=== PATIENT | male | born 1985 | race Caucasian/White ===

== ENCOUNTER 2016-12-21 22:53 | Emergency (ER) | payer MEDICARE ==
[~2016-12-21] VITALS: Ht 172.7 cm; Wt 136.1 kg
[2016-12-22 00:20] LABS: BASO # 0.1 x10^3/uL (0.0-0.2); BASO % 1 % (0-3); EOS % 1 % (0-3); HEMATOCRIT 41.5 % (39.0-53.0); HEMOGLOBIN 13.6 g/dL (13.0-17.5); LYMPH # 3.4 x10^3/uL (1.0-4.8); LYMPH % 34 % (24-48); MEAN CORPUSCULAR HEMOGLOBIN 28 pg (25-35); MEAN CORPUSCULAR HGB CONC 33 g/dL (31-37); MEAN CORPUSCULAR VOLUME 86 fL (79-100); MONO % 5 % (0-9); NEUT % 59 % (31-73); PLATELET COUNT 281 x10^3/uL (140-400); RED BLOOD COUNT 4.82 x10^6/uL (4.30-5.70); RED CELL DISTRIBUTION WIDTH 13.7 % (11.5-14.5)
[2016-12-22 00:36] LABS: CALCIUM 8.8 mg/dL (8.5-10.1); GFR 87.7; POTASSIUM 3.6 mmol/L (3.5-5.1)
[2016-12-22 00:49] LABS: ALBUMIN 3.9 g/dL (3.4-5.0); ALBUMIN/GLOBULIN RATIO 1.2 (1.0-1.7); TOTAL BILIRUBIN 0.4 mg/dL (0.2-1.0); TOTAL PROTEIN 7.2 g/dL (6.4-8.2)
--- NOTE | 2016-12-22 01:49 | RAD ---
Examination: CT head without contrast HISTORY: History of seizures COMPARISON: None available TECHNIQUE: Axial CT images of the head was performed without contrast. Coronal reformats were performed FINDINGS: There is mild 5 mm [id number] midline shift with the asymmetry of the cerebral hemispheres with the left cerebral hemisphere appearing smaller compared to the right. There is a large hypodensity, measuring 8.2 x 4.1 cm identified in the left cerebral hemisphere involving the left frontoparietal temporal region which appears continuous with the left lateral ventricle and with septation within. The right lateral ventricles appear somewhat small. The visualized paranasal sinuses, mastoid air cells are clear. 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 A follow-up MRI can be considered. 2. Minimal 5 mm [id number] midline shift. Electronically signed by: Ed Galindo MD (12/22/2016 1:45 AM) [facility]
[2016-12-22] MEDS ORDERED: PHEN100C PO (02:14)
--- NOTE | 2016-12-22 02:14 | PHYS DOC ---
Past Medical History Past Medical History: Other Additional Past Medical Histor: cerebral palsy, ADHD, tourette syndrome Past Surgical History: Other Additional Past Surgical Histo: R wrist, R hamstring extension, R ankle Alcohol Use: None Drug Use: None Adult General Chief Complaint Chief Complaint: SEIZURE HPI HPI Patient is a 31 year old gentleman with history significant for cervical palsy in the past as well as Tourette's and ADHD who has had a history significant for seizures that occurred 10 years ago. Patient reports that was his first seizure and then he had a second seizure shortly thereafter. Patient was started on Dilantin and Dilantin for 7 years. Approximately 3 years ago patient reports that he stopped his Dilantin. Patient reports he had a seizure for 7 years and thought it would be okay. Patient reports today he noticed some shaking in his feet called his mother and by His mother came and she reports that he was having a generalized tonic-clonic seizure. Patient denies any loss of bowel or bladder function. Patient denies biting his tongue. Patient has any recent fevers shakes chills nausea vomiting diarrhea chest pain shortness of breath. Patient reports she is tolerating by mouth's well. Patient reports no change in any medication stress sleeper anything else I could've exacerbated this. Patient reports that his CT scan the past is revealed that one side of his brain is cystic and that usually scares the radiologist so he has given me morning. According to the family the patient is currently back to his baseline. He is in good spirits. Review of systems Eyes: Denies change in visual acuity, redness, or eye pain HENT: Denies nasal congestion or sore throat Respiratory: Denies cough or shortness of breath Physical exam Constitutional: Well developed, well nourished, no acute distress, non-toxic appearance. HENT: Normocephalic, atraumatic, bilateral external ears normal, oropharynx moist, Eyes: no discharge. Neck: Normal range of motion, no tenderness, supple, no stridor. Cardiovascular:Heart rate regular rhythm, Lungs & Thorax: Bilateral breath sounds clear to auscultation Abdomen: Bowel sounds normal, soft, no tenderness, no masses, no pulsatile masses. Skin: Warm, dry, no erythema, no rash. Back: No tenderness, no CVA tenderness. Extremities: No tenderness, no cyanosis, no clubbing, ROM intact, no edema. Neurologic: Alert and oriented X 3, Psychologic: Affect normal, judgement normal, mood normal. Patient appears to be good spirits. Patient is laughing, appropriate, making jokes, very conversant. Family reports he is at his baseline. Assessment and plan 31-year-old gentleman with history significant for seizures in the past presented to the ER today secondary to recurrence of his seizures. Patient has been seizure-free for approximately 10 years. No new exacerbates are identified. Patient is requesting that we restart him on his Dilantin slowly able see his primary care physician for further evaluation of his seizures. Allergies Allergies Allergies Coded Allergies Type Severity Reaction Last Updated Verified amoxicillin Allergy Unknown 12/21/16 Yes Current Patient Data Vital Signs Vital Signs Date Time Temp Pulse Resp B/P (MAP) Pulse Ox O2 Delivery O2 Flow Rate FiO2 12/21/16 22:56 99.0 139 18 130/67 (88) 95 Room Air 99.0 Lab Values Laboratory Tests Test 12/21/16 23:15 White Blood Count 10.0 x10^3/uL (4.0-11.0) Red Blood Count 4.82 x10^6/uL (4.30-5.70) Hemoglobin 13.6 g/dL (13.0-17.5) Hematocrit 41.5 % (39.0-53.0) Mean Corpuscular Volume 86 fL (79-100) Mean Corpuscular Hemoglobin 28 pg (25-35) Mean Corpuscular Hemoglobin Concent 33 g/dL (31-37) Red Cell Distribution Width 13.7 % (11.5-14.5) Platelet Count 281 x10^3/uL (140-400) Neutrophils (%) (Auto) 59 % (31-73) Lymphocytes (%) (Auto) 34 % (24-48) Monocytes (%) (Auto) 5 % (0-9) Eosinophils (%) (Auto) 1 % (0-3) Basophils (%) (Auto) 1 % (0-3) Neutrophils # (Auto) 5.9 x10^3uL (1.8-7.7) Lymphocytes # (Auto) 3.4 x10^3/uL (1.0-4.8) Monocytes # (Auto) 0.5 x10^3/uL (0.0-1.1) Eosinophils # (Auto) 0.1 x10^3/uL (0.0-0.7) Basophils # (Auto) 0.1 x10^3/uL (0.0-0.2) Sodium Level 144 mmol/L (136-145) Potassium Level 3.6 mmol/L (3.5-5.1) Chloride Level 106 mmol/L (98-107) Carbon Dioxide Level 22 mmol/L (21-32) Anion Gap 16 (6-14) H Blood Urea Nitrogen 12 mg/dL (8-26) Creatinine 1.0 mg/dL (0.7-1.3) Estimated GFR (Cockcroft-Gault) 87.7 BUN/Creatinine Ratio 12 (6-20) Glucose Level 103 mg/dL (70-99) H Calcium Level 8.8 mg/dL (8.5-10.1) Total Bilirubin 0.4 mg/dL (0.2-1.0) Aspartate Amino Transferase (AST) 30 U/L (15-37) Alanine Aminotransferase (ALT) 76 U/L (16-63) H Alkaline Phosphatase 69 U/L (46-116) Total Protein 7.2 g/dL (6.4-8.2) Albumin 3.9 g/dL (3.4-5.0) Albumin/Globulin Ratio 1.2 (1.0-1.7) Laboratory Tests 12/21/16 23:15 Laboratory Tests 12/21/16 23:15 EKG EKG [] Radiology/Procedures Radiology/Procedures [] Course & Med Decision Making Course & Med Decision Making Pertinent Labs and Imaging studies reviewed. (See chart for details) [] Dragon Disclaimer Dragon Disclaimer This electronic medical record was generated, in whole or in part, using a voice recognition dictation system. Departure Departure Impression: Primary Impression: Seizure Disposition: 01 HOME, SELF-CARE Condition: IMPROVED Referrals: NO PCP (PCP) Patient Instructions: Seizure, Adult Scripts Phenytoin Sodium Extended (DILANTIN) 100 Mg Capsule 3 CAP PO DAILY, #90 CAP 3 Refills Prov: DORON JACOBS MD 12/22/16 DORON JACOBS MD Dec 22, 2016 02:14
[2016-12-22 02:15] VITALS: BP 129/75
[2016-12-22] MEDS ORDERED: PHENYTOIN SODIUM EXTENDED 100 MG CAPSULE PO ONE (02:30)
--- NOTE | 2016-12-22 06:34 | EKG ---
[facility] [address] [place] [address] Test Date: 2016-12-21 Test Time: 23:07:07 Pat Name: CHRIS PEÑALOZA Department: Room: Gender: Roll Carrier: : 1985 Requested By: DORON JACOBS Order Number: [id number] Reading MD: Isabella Izquierdo Measurements Intervals [place] Rate: 133 P: -149 MD: 86 QRS: 24 QRSD: 80 T: 36 QT: 344 QTc: 513 Interpretive Statements Sinus TACHYCARDIA OTHERWISE NORMAL EKG Electronically Signed On 12-24-2016 12:30:28 CDT by Isabella Izquierdo
== END 2016-12-22 02:40 | disposition home or self-care (01) ==
LOC: ER 22:53
DX: R56.9 Unspecified convulsions (principal); G80.9 Cerebral palsy, unspecified; F95.2 Tourette's disorder; F90.9 Attention-deficit hyperactivity disorder, unspecified type; Z88.1 Allergy status to other antibiotic agents
CPT/HCPCS: 36415; 70450; 80053; 85025; 93005; 99285-25